=== PATIENT | male | born 2000 | race Caucasian/White ===

== ENCOUNTER 2022-03-09 11:39 | Emergency (ER) | payer SELFPAY ==
[2022-03-09 11:54] VITALS: BP 129/74; PULSE 74; RESP 16; TEMP 98.6; BMI 25.0
== END 2022-03-09 12:22 | disposition home or self-care (01) ==
LOC: JERFT 11:39 → JER 11:39 → JERFT 12:22
DX: J01.80 Other acute sinusitis (principal); J34.2 Deviated nasal septum
CPT/HCPCS: 99283-25

== ENCOUNTER 2022-06-26 19:46 | Emergency (ER) | payer OTHER ==
[2022-06-26 20:01] VITALS: BP 106/63; PULSE 94; RESP 17; TEMP 99.3; BMI 23.1
[2022-06-26] MEDS ORDERED: IBUPROFEN 600 MG TABLET (FP) PO ONE ×2 (21:49→22:05)
[2022-06-26] MEDS ORDERED: ACETAMINOPHEN 500 MG TABLET (FP) PO ONE (21:49)
[2022-06-26] MEDS ORDERED: ACETAMINOPHEN 500 MG TABLET (FP) ONE (22:05)
== END 2022-06-26 22:52 | disposition home or self-care (01) ==
LOC: JER 19:46
DX: U07.1 COVID-19 (principal)
CPT/HCPCS: 0241U-QW; 71046-TC-FY; 82962; 87651; 99284-25

== ENCOUNTER 2022-09-06 00:04 | Emergency (ER) | payer OTHER ==
[2022-09-06 00:12] VITALS: BP 137/85; PULSE 67; RESP 18; TEMP 97.7; BMI 26.6
[2022-09-06] MEDS ORDERED: IBUPROFEN 400 MG TABLET (FP) PO ONE ×2 (01:02→01:08)
[2022-09-06] MEDS ORDERED: LIDOCAINE 5% TOPICAL PATCH TP ONE (01:16)
[2022-09-06] MEDS ORDERED: LIDOCAINE 5% TOPICAL PATCH ONE (01:24)
[2022-09-06] MEDS ORDERED: LIDOCAINE PATCH REMOVAL MC SCH (22:00)
== END 2022-09-06 01:36 | disposition home or self-care (01) ==
LOC: JER 00:04
DX: M54.50 Low back pain, unspecified (principal)
CPT/HCPCS: 71045-TC-FY; 93005; 93010; 99284-25